=== PATIENT | female | born 2000 | race African-American/Black ===

== ENCOUNTER 2024-03-09 20:22 | Day surgery (SDC) | payer MEDICAID ==
[2024-03-09] MEDS ORDERED: hydrALAZINE 20 MG/ML VIAL SLOW IVP PRN (20:29)
[2024-03-09 20:54] VITALS: BMI 39.9
[2024-03-09 20:57] LABS: Bilirubin Neg (Negative); Blood, Urine Negative (Negative); Clarity Clear (Clear); Glucose, Urine (Dipstick) Normal (Negative); Ketone, Urine 150 mg/dL (Negative); Leukocyte 25 (Negative); Nitrite Negative (Negative); Protein, Urine (Dipstick) 15 mg/dl (Neg-Trace); Specific Gravity, Urine 1.015 (1.005-1.030); Urobilinogen Normal mg/dL (Less than 2)
[2024-03-09 21:16] LABS: Bacteria/HPF 1+ HPF (None Seen); CAUTI Indications for Culture Pregnancy; Mucous/LPF Rare LPF (<2+); RBC/HPF 0-3 HPF (0-3); Squamous Epithelial 0-3 HPF (0-3)
[2024-03-09 21:17] LABS: Urine Culture Reflex Yes Yes
[2024-03-09] MEDS: Acetaminophen 500 MG TAB PO SCH (21:47)
[2024-03-09] MEDS: Cyclobenzaprine 10 MG TAB PO SCH ×2 (22:01→22:05)
[2024-03-11 05:06] LABS: Chlamydia by PCR, Vaginal Swab Not Detected (NotDetected); GC by PCR, Vaginal Swab Not Detected (NotDetected)
== END 2024-03-09 23:05 | disposition home or self-care (01) ==
LOC: CSHLD/OP 20:22
PROVIDERS: ATTEND Family Medicine
DX: O47.03 False labor before 37 completed weeks of gestation, third trimester (principal); O99.013 Anemia complicating pregnancy, third trimester; O98.813 Other maternal infectious and parasitic diseases complicating pregnancy, third trimester; A74.9 Chlamydial infection, unspecified; O99.283 Endocrine, nutritional and metabolic diseases complicating pregnancy, third trimester; E86.0 Dehydration; O99.891 Other specified diseases and conditions complicating pregnancy; R51.9 Headache, unspecified; O23.593 Infection of other part of genital tract in pregnancy, third trimester; N89.8 Other specified noninflammatory disorders of vagina; Z79.899 Other long term (current) drug therapy; Z79.82 Long term (current) use of aspirin; Z3A.35 35 weeks gestation of pregnancy
CPT/HCPCS: 81001; 87086; 87480; 87491; 87510; 87591; 87660; 99284

== ENCOUNTER 2024-03-28 09:03 | Day surgery (SDC) | payer MEDICAID ==
[2024-03-28 09:33] VITALS: BMI 41.1
[2024-03-28] MEDS ORDERED: hydrALAZINE 20 MG/ML VIAL SLOW IVP PRN (09:40)
[2024-03-28 10:52] LABS: #Basophils 0.04 10x3/uL (0.0-0.2); #Eosinophils 0.05 10x3/uL (0.0-0.5); #Monocytes 0.83 10x3/uL (0.0-1.1); #Neutrophils 5.63 10x3/uL (1.5-8.4); %Basophils 0.5 % (0.0-2.0); %Eosinophils 0.6 % (0.0-6.0); %Lymphocytes 15.8 % (18.0-47.0); %Monocytes 10.5 % (0.0-10.0); Hematocrit 32.5 % (34.9-44.5); Hemoglobin 10.9 g/dL (12.0-15.5); Mean Corpuscular HGB CONC 33.5 g/dL (32.0-36.0); Mean Corpuscular Hemoglobin 30.4 pg (27.0-33.0); Mean Corpuscular Volume 90.5 fL (81.6-98.3); Mean Platelet Volume 12.4 fL (7.4-10.4); Platelet Count 225 10x3/uL (150-450); RBC Distribution Width 13.3 % (11.5-14.5); Red Blood Cell (RBC) Count 3.59 10x6/uL (3.90-5.03); White Blood Cell (WBC) Count 7.9 10x3/uL (3.5-10.5)
[2024-03-28 11:00] LABS: Bilirubin Neg (Negative); Blood, Urine Negative (Negative); Clarity Clear (Clear); Glucose, Urine (Dipstick) Normal (Negative); Ketone, Urine Negative (Negative); Leukocyte 25 (Negative); Nitrite Negative (Negative); Protein, Urine (Dipstick) Negative (Neg-Trace); Urobilinogen Normal mg/dL (Less than 2)
[2024-03-28 11:12] LABS: ALT (SGPT) 14 U/L (8-55); AST (SGOT) 17 U/L (5-34); Alkaline Phosphatase 125 U/L (40-110); Anion Gap 14 mmol/L (10-20); BUN (Urea Nitrogen) 5 mg/dL (7.0-18.7); Bilirubin, Total 0.2 mg/dL (0.2-1.2); Calc. Creatinine Clearance 250 mL/min (70-130); Calcium 9.5 mg/dL (7.8-10.44); Carbon Dioxide 15 mmol/L (22-29); Chloride 109 mmol/L (98-107); Estimated GFR 133; Glucose 80 mg/dL (70-105); Sodium 134 mmol/L (136-145)
[2024-03-28 11:44] LABS: Bacteria/HPF Rare-Few HPF (None Seen); CAUTI Indications for Culture Pregnancy; RBC/HPF None Seen HPF (0-3); Squamous Epithelial Greater than 50 HPF (0-3)
[2024-03-28 11:45] LABS: Urine Culture Reflex Yes Yes
== END 2024-03-28 12:00 | disposition home or self-care (01) ==
LOC: CSHLD/OP 09:03
PROVIDERS: ATTEND Family Medicine
DX: O36.8130 Decreased fetal movements, third trimester, not applicable or unspecified (principal); Z3A.38 38 weeks gestation of pregnancy
CPT/HCPCS: 76819; 80053; 81001; 82570; 84156; 85025; 87086; 99283

== ENCOUNTER 2024-03-29 21:34 | Day surgery (SDC) | payer MEDICAID ==
[2024-03-29 21:57] VITALS: BMI 42.1
[2024-03-29 22:30] LABS: Fetal Membranes Rupture No Membranes Rupture (No Rupture)
[2024-03-29] MEDS ORDERED: hydrALAZINE 20 MG/ML VIAL SLOW IVP PRN (23:03)
== END 2024-03-29 23:45 | disposition home or self-care (01) ==
LOC: CSHLD/OP 21:34
PROVIDERS: ATTEND Family Medicine
DX: O47.1 False labor at or after 37 completed weeks of gestation (principal); Z03.71 Encounter for suspected problem with amniotic cavity and membrane ruled out; O99.513 Diseases of the respiratory system complicating pregnancy, third trimester; J45.909 Unspecified asthma, uncomplicated; O99.013 Anemia complicating pregnancy, third trimester; Z79.899 Other long term (current) drug therapy; Z98.890 Other specified postprocedural states; Z3A.38 38 weeks gestation of pregnancy
CPT/HCPCS: 84112; 99283

== ENCOUNTER 2024-04-09 19:00 | Inpatient (IN) | payer MEDICAID ==
[~2024-04-09 19:00] MED LIST: Bupivacaine 0.25% HCL 30 ML VIAL ONE
[2024-04-09] MEDS ORDERED: Ondansetron PF 4 MG/2 ML Vial IVP PRN (21:14)
[2024-04-09] MEDS ORDERED: Methylergonovine 0.2 MG/ML VIAL IM PRN (21:14)
[2024-04-09] MEDS ORDERED: Lactated Ringer's 1,000 ML IV SCH (21:14)
[2024-04-09] MEDS ORDERED: Lidocaine 1% (PF) 30 ML VIAL SC PRN (21:14)
[2024-04-09] MEDS ORDERED: Carboprost 250 MCG/ML AMP IM PRN (21:14)
[2024-04-09] MEDS ORDERED: Misoprostol 200 MCG TAB PR PRN (21:14)
[2024-04-09] MEDS ORDERED: Tranexamic Acid 1,000 MG/10 ML VIAL IVP PRN (21:14)
[2024-04-09] MEDS ORDERED: Oxytocin 30 units/NS 500 ML 500 ML IV SCH ×3 (21:14)
[2024-04-09] MEDS ORDERED: Ibuprofen 800 MG TAB PO PRN (21:14)
[2024-04-09] MEDS ORDERED: HYDROcodone/Acetaminophen 5/325 mg Tablet PO PRN (21:14)
[2024-04-09] MEDS ORDERED: hydrALAZINE 20 MG/ML VIAL SLOW IVP PRN (21:14)
[2024-04-09] MEDS ORDERED: Diphenoxylate HCl/Atropine Tablet PO PRN (21:14)
[2024-04-09] MEDS ORDERED: Promethazine HCl 25 MG/ML VIAL IM PRN (21:14)
[2024-04-09] MEDS ORDERED: Acetaminophen 500 MG TAB PO PRN (21:14)
[2024-04-09 21:48] VITALS: BMI 42.5
[2024-04-09 22:28] LABS: Hematocrit 32.6 % (34.9-44.5); Mean Corpuscular HGB CONC 33.7 g/dL (32.0-36.0); Mean Corpuscular Hemoglobin 30.4 pg (27.0-33.0); Mean Corpuscular Volume 90.1 fL (81.6-98.3); Mean Platelet Volume 12.1 fL (7.4-10.4); Platelet Count 217 10x3/uL (150-450); RBC Distribution Width 13.2 % (11.5-14.5); Red Blood Cell (RBC) Count 3.62 10x6/uL (3.90-5.03); White Blood Cell (WBC) Count 8.17 10x3/uL (3.5-10.5)
[2024-04-09] MEDS: Misoprostol 100 MCG TAB VAG SCH (22:33)
[2024-04-09 23:10] LABS: HBsAg Index 0.23 S/CO (0-0.99); Hep B Surf Ag - L&D Non-Reactive S/CO (NonReactive)
[2024-04-09 23:12] LABS: Syphilis Antibody Nonreactive (Nonreactive); Syphilis Antibody Index 0.09 S/CO (<1.00 Non-Reactive)
[2024-04-10] MEDS: fentaNYL 50 mcg/mL 1 mL Vial SLOW IVP PRN (10:11)
[2024-04-10] MEDS ORDERED: Lactated Ringer's 500 ML IV PRN (11:05)
[2024-04-10] MEDS ORDERED: Ondansetron PF 4 MG/2 ML Vial IVP PRN ×4 (11:05→15:45)
[2024-04-10] MEDS ORDERED: Acetaminophen 325 MG TAB PO PRN (11:05)
[2024-04-10] MEDS ORDERED: Moisturizing Cream (Eucerin) 113 GM JAR TOP PRN ×2 (11:05→12:50)
[2024-04-10] MEDS ORDERED: Naloxone HCl 0.4 mg/ml Vial IVP PRN ×4 (11:05→12:50)
[2024-04-10] MEDS ORDERED: diphenhydrAMINE 50 MG/ML VIAL IVP PRN ×2 (11:05→12:50)
[2024-04-10] MEDS ORDERED: Promethazine HCl 25 MG/ML VIAL IM PRN ×3 (11:05→15:45)
[2024-04-10] MEDS ORDERED: ePHEDrine Sulfate 50 MG/10 ML VIAL SLOW IVP PRN (11:05)
[2024-04-10] MEDS ORDERED: fentaNYL 2 mcg/Ropivacaine 0.2% Epidural 100 ML CADD EPIDURAL SCH (11:15)
[2024-04-10] MEDS ORDERED: Communication Order-Pharmacy FS SCH ×2 (11:15→13:00)
[2024-04-10] MEDS ORDERED: Ketorolac Tromethamine 30 MG (1 mL) VIAL IVP PRN (12:50)
[2024-04-10] MEDS ORDERED: Naloxone HCl 0.4 mg/ml Vial IV PRN (12:50)
[2024-04-10] MEDS ORDERED: fentaNYL 50 mcg/mL 1 mL Vial SLOW IVP PRN (12:50)
[2024-04-10] MEDS ORDERED: Meperidine HCl/PF 25 MG (1 mL) VIAL SLOW IVP PRN (12:50)
[2024-04-10] MEDS ORDERED: Ketorolac Tromethamine 30 MG (1 mL) VIAL IVP SCH (13:00)
[2024-04-10] MEDS ORDERED: diphenhydrAMINE 25 MG CAP PO PRN (15:45)
[2024-04-10] MEDS ORDERED: Bisacodyl 10 MG SUPP PR PRN (15:45)
[2024-04-10] MEDS ORDERED: Simethicone Chewable 80 MG TAB PO PRN (15:45)
[2024-04-10] MEDS ORDERED: Boostrix 0.5 ML (Tdap) VIAL (>/=7 yrs of age) IM ONE (15:45)
[2024-04-10] MEDS ORDERED: hydrALAZINE 20 MG/ML VIAL SLOW IVP PRN (15:45)
[2024-04-10] MEDS ORDERED: Lanolin Ointment 7 GM TUBE TOP PRN (15:45)
[2024-04-10] MEDS: Azithromycin 500 MG VIAL ONE (15:51)
[2024-04-10] MEDS: fentaNYL/Ropivacaine Epidural 100 ML ONE (15:51)
[2024-04-10] MEDS: Ketorolac Tromethamine 30 MG (1 mL) VIAL ONE (15:52)
[2024-04-10] MEDS: Dexamethasone 10 MG/ML VIAL ONE (15:52)
[2024-04-10] MEDS: CEFAZOLIN 2 GM VIAL ONE (15:52)
[2024-04-10] MEDS: Chloroprocaine 3% PF 20 ML VIAL ONE (15:52)
[2024-04-10] MEDS: Erythromycin Base 0.5% Oint 1 GM TUBE ONE (15:54)
[2024-04-10] MEDS: Oxytocin 10 UNITS/ML VIAL ONE (15:54)
[2024-04-10] MEDS: Morphine PF 10 MG/10 ML VIAL ONE (15:54)
[2024-04-10] MEDS: Hepatitis B Vaccine 10 MCG/0.5 ML SYR ONE (15:54)
[2024-04-10] MEDS: Ondansetron PF 4 MG/2 ML Vial ONE (15:54)
[2024-04-10] MEDS: Phytonadione Neonatal 1 MG/0.5 ML AMP ONE ×2 (15:55)
[2024-04-10] MEDS: Ketorolac Tromethamine 30 MG (1 mL) VIAL IVP SCH (18:11)
[2024-04-10] MEDS: Ferrous Sulfate 325 MG TAB PO SCH (21:18)
[2024-04-10] MEDS: Docusate 100 MG CAP PO SCH (21:21)
[2024-04-11] MEDS ORDERED: Meperidine HCl/PF 25 MG (1 mL) VIAL IM PRN (01:00)
[2024-04-11 05:16] LABS: Hematocrit 27.9 % (34.9-44.5); Hemoglobin 9.7 g/dL (12.0-15.5); Mean Corpuscular HGB CONC 34.8 g/dL (32.0-36.0); Mean Corpuscular Hemoglobin 31.5 pg (27.0-33.0); Mean Corpuscular Volume 90.6 fL (81.6-98.3); Mean Platelet Volume 11.8 fL (7.4-10.4); Platelet Count 236 10x3/uL (150-450); RBC Distribution Width 13.2 % (11.5-14.5); Red Blood Cell (RBC) Count 3.08 10x6/uL (3.90-5.03); White Blood Cell (WBC) Count 17.49 10x3/uL (3.5-10.5)
[2024-04-11] MEDS: Prenatal Vitamin 1 TAB PO SCH (07:58)
[2024-04-11] MEDS: HYDROcodone/Acetaminophen 5/325 mg Tablet PO PRN (11:11)
[2024-04-11] MEDS: Ibuprofen 800 MG TAB PO SCH (13:29)
[2024-04-12] MEDS: HYDROcodone/Acetaminophen 5/325 mg Tablet PO PRN (03:10)
[2024-04-13 08:02] VITALS: BP 131/66; TEMP 97.9
== END 2024-04-13 15:30 | disposition home or self-care (01) | DRG 788 ==
LOC: CSHLD 20:34 → CSHPED 04-10 15:00
PROVIDERS: ADMIT Family Medicine; ATTEND Family Medicine
PROC: 10D00Z1 Extraction of Products of Conception, Low, Open Approach (ICD-10-PCS; principal; 2024-04-10)
DX: O76 Abnormality in fetal heart rate and rhythm complicating labor and delivery (principal); O48.0 Post-term pregnancy; Z3A.40 40 weeks gestation of pregnancy; Z37.0 Single live birth
CPT/HCPCS: 36415; 51702; 85027; 86780; 86850; 86900; 86901; 87340; J0665; J1100; J1885; J2274; J2401; J2405; J2590; J3010